=== PATIENT | female | born 1995 | race Caucasian/White ===

== ENCOUNTER 2019-12-19 19:48 | Emergency (ER) | payer BC ==
[~2019-12-19] VITALS: Ht 170.2 cm; Wt 81.5 kg
[2019-12-19] MEDS ORDERED: IBUP-1984 PO (21:24)
[2019-12-19] MEDS ORDERED: AMOX500C2 PO (21:24)
[2019-12-19 21:41] VITALS: BP 128/79
== END 2019-12-19 21:38 | disposition home or self-care (01) ==
LOC: ER 19:50
DX: K08.89 Other specified disorders of teeth and supporting structures (principal); Z79.2 Long term (current) use of antibiotics; Z79.899 Other long term (current) drug therapy
CPT/HCPCS: 99283

== ENCOUNTER 2022-12-07 09:07 | Emergency (ER) | payer BC, MEDICAID ==
[~2022-12-07] VITALS: Ht 162.6 cm; Wt 94.1 kg
[2022-12-07 09:12] VITALS: BP 134/90; PULSE 78; TEMP 98.4; O2SAT 98
[2022-12-07] MEDS ORDERED: ketorolac tromethamine 15mg/ml inj. IM ONE (09:35)
[2022-12-07] MEDS ORDERED: DOXY150T8 PO (09:38)
[2022-12-07] MEDS ORDERED: NAPR-56 PO (09:38)
[2022-12-07 09:55] VITALS: RESP 16
== END 2022-12-07 10:14 | disposition home or self-care (01) ==
LOC: ER 09:08
DX: K04.7 Periapical abscess without sinus (principal)
CPT/HCPCS: 96372; 99283; J1885

== ENCOUNTER 2023-01-18 14:20 | Emergency (ER) | payer MEDICAID ==
[~2023-01-18] VITALS: Ht 172.7 cm; Wt 97.0 kg
[2023-01-18 14:27] VITALS: BP 120/82; PULSE 96; O2SAT 98
[2023-01-18] MEDS ORDERED: NAPR-56 PO (17:23)
[2023-01-18] MEDS ORDERED: DOXY-1 PO (17:23)
[2023-01-18] MEDS ORDERED: ketorolac trometh inj. 60 MG/2 ML VIAL IM ONE (17:25)
[2023-01-18] MEDS ORDERED: ketorolac trometh. 30mg/ml inj. IM ONE (17:35)
[2023-01-18 17:54] VITALS: RESP 14
[2023-01-18 17:57] VITALS: TEMP 98.1
== END 2023-01-18 17:59 | disposition home or self-care (01) ==
LOC: ER 14:21
DX: K04.7 Periapical abscess without sinus (principal); R22.0 Localized swelling, mass and lump, head; Z79.2 Long term (current) use of antibiotics; Z79.899 Other long term (current) drug therapy
CPT/HCPCS: 96372; 99283; J1885